=== PATIENT | male | born 1975 | race Two or more races ===

== ENCOUNTER 2018-06-05 03:12 | Emergency (ER) | payer OTHER ==
[~2018-06-05] VITALS: Ht 167.6 cm; Wt 149.7 kg
[2018-06-05] MEDS ORDERED: AMOX-CLAV 875-1 EACH PO (04:48)
[2018-06-05] MEDS ORDERED: INTESTINEX680 M1 PO (04:48)
== END 2018-06-05 05:04 ==
LOC: ER 03:12
DX: S50.871A Other superficial bite of right forearm, initial encounter (principal); W50.3XXA Accidental bite by another person, initial encounter; Y93.89 Activity, other specified; Y92.89 Other specified places as the place of occurrence of the external cause; Y99.8 Other external cause status

== ENCOUNTER 2021-05-13 05:36 | Day surgery (SDC) | payer OTHER ==
[~2021-05-13 05:36] MED LIST: AMOX-CLAV 875-1 EACH PO; INTESTINEX680 M1 PO
== END 2021-05-13 09:55 | disposition home or self-care (01) ==
LOC: AMB-ENDOS 05:36
PROVIDERS: ATTEND Surgery
DX: K29.50 Unspecified chronic gastritis without bleeding (principal); K44.9 Diaphragmatic hernia without obstruction or gangrene; Z20.822 Contact with and (suspected) exposure to COVID-19